=== PATIENT | female | born 1960 | race Caucasian/White ===

== ENCOUNTER → 2023-05-26 08:45 | Outpatient (REF) | payer OTHER, SELFPAY | LOC: WDC 08:45 | PROVIDERS: ATTENDING PHYSICIAN Internal Medicine | DX: Z12.31 Encounter for screening mammogram for malignant neoplasm of breast (principal) | CPT/HCPCS: 77063; 77067 ==

== ENCOUNTER 2023-06-24 14:54 | Emergency (ER) | payer OTHER, SELFPAY ==
--- NOTE | 2023-06-24 15:54 | ED.GENMED ---
History of Present Illness
<Lynn Abel PA-C - Last Filed: 06/24/23 23:10>
General
Chief Complaint: Eye Problems
Source: patient
Exam Limitations: none
Time Seen by Provider: 06/24/23 15:28
Nursing documentation reviewed up to this point in time: agreed with
Travel History
Have you had any contact with someone who has COVID-19?: No
Do you have any symptoms of coronavirus? Fever > 100 degrees, chills, cough, shortness of breath, sore throat, loss of taste or smell, muscle aches, or headache?: No
History of Present Illness
History of Present Illness:
Patient is a 62 year old female with no significant past medical history presenting for evaluation of right eye redness. Patient states that she has intermittently over the past month but experiencing sharp, stabbing pain behind her right eye and
right side of head. These episodes only last about 30 seconds each and occur about once per day. She has been using Systane eyedrops for dry eye. Patient states that earlier today she had an episode of the pain, applied eyedrops, shortly after
looked at her eye in the mirror and noticed significant redness in the right bottom right corner of eye. She denies any current eye pain, blurry vision, flashes, floaters, double vision. She denies any headache, neck pain, numbness/tingling.
Patient does not wear contact lenses. She does use glasses daily and follows with an roofing subcontractor.
Patient was seen at urgent care earlier today and was referred to the emergency department for possible CT scan of head.
Of note�patient was recently diagnosed with sinusitis. She is currently finishing up a course of Augmentin.
Past History
<Lynn Abel PA-C - Last Filed: 06/24/23 23:10>
Past History
ED Past Medical History: GERD (diet controlled) and Other (Costochondritis, chronic back pain with sciatica-on Percocet BID/Motrin)
ED Past Surgical History: None
Social History
Tobacco: Non-smoker
Alcohol: None
Drug: None
Personal:
Living: with family
Family History
Family History: CAD
Phy Exam
<Lynn Abel PA-C - Last Filed: 06/24/23 23:10>
Physical Exam
Physical Exam:
General: In no apparent distress, nontoxic appearing
HEENT: Atraumatic, normocephalic; conjunctival hemorrhage noted to the right inferior lateral aspect of eye limbic sparing, no evidence of hyphema or increased intraocular pressure, pupils equal round and reactive light bilaterally, extraocular
muscles intact,protecting airway
Neck: appears supple, no cervical spine or midline spinal tenderness
CV: Regular rate and rhythm, heart sounds normal, no evidence of cyanosis
Resp: No evidence of respiratory distress, lungs clear bilaterally
Abd: Soft, nontender, non-distended
Extremities: No deformities, no evidence of cyanosis or edema
Neuro: alert and oriented x 3 to person, place, time; speech normal; no focal neurologic deficits, sensation fully intact
Psych: Normal affect
Skin: Intact, no rashes
Course
<Lynn Abel PA-C - Last Filed: 06/24/23 23:10>
Orders/Labs/Results
Orders:
Orders
06/24/23 15:31
Fluorescein Sodium [Ful-Gladys] 2 mg .ROUTE .STK-MED ONE
Purified Water Eye Wash [Dacriose Eye Wash Solution] 120 ml .ROUTE .STK-MED ONE
Tetracaine HCl [Tetracaine 0.5% Ophthalmic Solution] 1 drop .ROUTE .STK-MED ONE
06/24/23 15:39
Tobramycin 0.3% [Tobrex 0.3% Eye Drops] 1 drop .ROUTE .STK-MED ONE
06/24/23 15:59
CT Head W/o Iv Contrast Urgent
Comment:
Reason For Exam: pain behind right eye
Sinuses wo Contrast CT [CT Sinuses W/o Iv Contrast] Urgent
Comment:
Reason For Exam: pain behind right eye; finishing abx for sinusitis
06/24/23 18:18
Prednisone [Deltasone] 50 mg PO NOW STA
Vital Signs
Initial and Last Documented VS:
Initial Vital Signs
Temp Pulse Resp BP Pulse Ox
98.2 F 88 18 150/84 98
06/24/23 14:58 06/24/23 14:58 06/24/23 14:58 06/24/23 14:58 06/24/23 14:58
Last Documented Vital Signs
Temp Pulse Resp BP Pulse Ox
98.2 F 88 18 150/84 98
06/24/23 14:58 06/24/23 14:58 06/24/23 14:58 06/24/23 14:58 06/24/23 14:58
<Rohan Cohn, DO - Last Filed: 06/24/23 16:09>
Orders/Labs/Results
Orders:
Orders
06/24/23 15:31
Fluorescein Sodium [Ful-Gladys] 2 mg .ROUTE .STK-MED ONE
Purified Water Eye Wash [Dacriose Eye Wash Solution] 120 ml .ROUTE .STK-MED ONE
Tetracaine HCl [Tetracaine 0.5% Ophthalmic Solution] 1 drop .ROUTE .STK-MED ONE
06/24/23 15:39
Tobramycin 0.3% [Tobrex 0.3% Eye Drops] 1 drop .ROUTE .STK-MED ONE
06/24/23 15:59
CT Head W/o Iv Contrast Urgent
Comment:
Reason For Exam: pain behind right eye
Sinuses wo Contrast CT [CT Sinuses W/o Iv Contrast] Urgent
Comment:
Reason For Exam: pain behind right eye; finishing abx for sinusitis
06/24/23 18:18
Prednisone [Deltasone] 50 mg PO NOW STA
Vital Signs
Initial and Last Documented VS:
Initial Vital Signs
Temp Pulse Resp BP Pulse Ox
98.2 F 88 18 150/84 98
06/24/23 14:58 06/24/23 14:58 06/24/23 14:58 06/24/23 14:58 06/24/23 14:58
Last Documented Vital Signs
Temp Pulse Resp BP Pulse Ox
98.2 F 88 18 150/84 98
06/24/23 14:58 06/24/23 14:58 06/24/23 14:58 06/24/23 14:58 06/24/23 14:58
<Lynn Abel PA-C - Last Filed: 06/24/23 23:10>
MDM/Problems Addressed
Differential Diagnosis Includes:
Subconjunctival hemorrhage, sinusitis, cluster headache, migraine, conjunctivitis, acute angle-closure glaucoma, intraparenchymal hemorrhage etc.
MDM/Problems Addressed:
62-year-old female presenting for evaluation of right eye redness. Patient does report intermittent stabbing pain behind right eye over the past month. Currently finishing up course of antibiotic for suspected sinusitis. Patient is currently
asymptomatic and denies any headache, blurry vision, flashes, floaters, pain. Seen in urgent care and referred to emergency department for possible CT scan. Mildly hypertensive, otherwise vital signs stable. Physical exam as document above. She
does have a subconjunctival hemorrhage of the right eye in the inferior lateral aspect without any evidence of hyphema or increase in intraocular pressure. Given known sinus infection and persistent, yet intermittent pain�will check CT head and
sinuses. I do suspect that the subconjunctival hemorrhage is unrelated to intermittent pain.
Visual acuity obtained and noted. Intraocular pressures obtained with 15 mmHg and right eye and 14 [address] and left eye[address] head/sinuses pending
No evidence of acute intracranial disease noted on CT of head. CT of sinuses do show complete occlusion of left maxillary sinus with a mass suspicious for polyp, possible infection and cyst within the right maxillary sinus. Suspect these findings
may be contributing to the pain behind patient's eye. Given patient is already being treated for sinus affection�will give dose of steroid in emergency department and discharged with Medrol Dosepak.
Patient has no emergent findings found today while in the emergency department. Intraocular pressure is normal. No acute intracranial abnormalities noted on imaging. Patient has remained completely asymptomatic since arrival to emergency
department today. Stable for discharge with ENT referral and ophthalmology referral. Return precautions discussed with patient at length.
Chronic conditions affecting care:
N/A
Acute Exacerbation and/or Progression of Chronic Illness:
N/A
<Lynn Abel PA-C - Last Filed: 06/24/23 23:10>
*Radiology
Radiology exam reviewed: preliminary read by ED provider and radiology read reviewed
*Pulse Oximetry
Patient hypoxic: no
*EKG
Interpreted by ED Provider?: NA
*Radiation Control Health Physicist Interpretation
Rate: Radiation Control Health Physicist- N/A
*Critical Care Note
Total Time (30-74mins, 75-104mins- exclusive of procedures): Not Applicable
Data Reviewed
Source: patient
ED Attending Note
<Lynn Abel PA-C - Last Filed: 06/24/23 23:10>
-
Portions of this chart may have been created with voice recognition software.� Occasional wrong word or��sound alike� substitutions may have occurred due to the inherent limitations of voice recognition software.
<Rohan Cohn DO - Last Filed: 06/24/23 16:09>
ED Attending Note
Patient seen and examined by attending physician: Yes
I performed the substantive portion of visit, reviewed & personally made and approve the management plan that is documented in note by myself or KAUSHAL.: Yes
ED Attending Note:
Seen with PA examined independently intermittent right eye pain diagnosed with sinusitis today put some drops and noticed looks like a subconjunctival hemorrhage seen urgent care referred here for imaging
Discharge Plan
Departure
Patient Disposition: Home (Routine Discharge)
Date of Disposition: 06/24/23
Time of Disposition: 18:18
Patient with high blood pressure during this ER visit?: No
Condition: Good
Covid-19: Not Applicable
Discharge Problem:
Subconjunctival hemorrhage of right eye, Sinusitis
Instructions: Subconjunctival Hemorrhage, Sinusitis, Adult ED
Prescriptions:
New
methylprednisolone [Medrol (Fernando)] 4 mg tablets,dose pack
See Rx Instructions .ROUTE .COMPLEX Qty: 21 0RF
Rx Instructions:
for 6 days
No Action
hydrocodone-acetaminophen 1 EACH tablet
1 ea PO .Q4-6HPRN PRN (Reason: pain)
methylprednisolone [Medrol (Fernando)] 4 MG tablets,dose pack
4 tab PO . DIRECT Qty: 1 0RF
ondansetron 4 MG tablet,disintegrating
4 mg PO TIDPRN PRN (Reason: nausea/vomiting) Qty: 8 0RF
dicyclomine 20 mg tablet
20 mg PO TID Qty: 20 0RF
Referrals:
Александр Yanez MD [Active] - Call in 1-3 days for appt
Zachary Alegre DO [Family Provider] -
Bettina Osei MD [Active] - As needed
Activity Restrictions/Additional Instructions:
-Return to the emergency department with nay high fevers, severe head, neck, or eye pain, visual changes, dizziness, numbness/tingling, worsening in current symptoms, or any other symptoms
-A prescription has been sent for steroid dose pack. You received your first dose of steroid in the emergency department today. You can start this tomorrow. You should complete your course of antibiotic for sinusitis as prescribed
-You can take Motrin, Tylenol as needed for discomfort
-As discussed�you should follow-up with ENT for further evaluation/management of sinusitis. A contact number has also been provided for ophthalmology, if needed
Interventions
Interventions:
*Risk Screen - Suicide Last Done: 06/24/23 15:34
*General Assessment Last Done: 06/24/23 15:11
*Neglect/Abuse Screening Last Done: 06/24/23 15:34
ED- Fall Risk Assessment Last Done: 06/24/23 15:34
*ED COVID-19 Vaccine History Last Done: 06/24/23 15:11
*Nursing Disposition Last Done: 06/24/23 18:29
Discharge Date and Time
Discharge Date/Time: 06/24/23 18:30
Print Language: CITIZEN OF [place]
[2023-06-24] MEDS: DELTASONE 50 MG PO (18:28)
== END 2023-06-24 18:30 | disposition home or self-care (01) ==
LOC: EMR 14:54
PROVIDERS: EMERGENCY PHYSICIAN Emergency Medicine; FAMILY PHYSICIAN Internal Medicine
DX: J01.90 Acute sinusitis, unspecified (principal); H11.31 Conjunctival hemorrhage, right eye; K21.9 Gastro-esophageal reflux disease without esophagitis; G89.29 Other chronic pain; M54.30 Sciatica, unspecified side; Z88.8 Allergy status to other drugs, medicaments and biological substances; Z91.018 Allergy to other foods
CPT/HCPCS: 99284; 70450; 70486

== ENCOUNTER 2023-09-26 08:30 | Emergency (ER) | payer OTHER, SELFPAY ==
[2023-09-26 09:36] LABS: % Basophils 0.6 % (0-2); % Eosinophils 0.1 % (0-6); % Immature Granulocytes 0.3 % (0-0.5); % Lymphocytes 16.1 % (20.5-51.1); % Monocytes 7.7 % (1.7-9.3); % Neutrophils 75.2 % (42.2-75.2); Absolute Basophils 0.1 10^3/uL (0-0.2); Absolute Lymphocytes 1.7 10^3/uL (1.2-3.4); Absolute Monocytes 0.8 10^3/uL (0.1-0.6); Absolute Neutrophils 8.1 10^3/uL (1.4-6.5); Hemoglobin 13.7 g/dL (12.0-16.0); Mean Corp Hgb Conc. 34.3 g/dL (33.0-37.0); Mean Corpuscular Hgb 29.7 pg (27.0-31.0); Mean Corpuscular Volume 86.8 fL (81.0-99.0); Mean Platelet Volume 9.3 fL (7.4-10.4); Nucleated Red Blood Cells % 0 %; Platelet Count 271 10^3/uL (130-400); Red Blood Cell Count 4.61 10^6/uL (4.20-5.40); Red Cell Dist. Width 12.5 % (11.5-14.5); White Blood Cell Count 10.8 10^3/uL (4.8-10.8)
[2023-09-26 09:47] LABS: ALT (SGPT) 16 U/L (0-35); AST (SGOT) 20 U/L (14-36); Albumin 4.6 g/dl (3.5-5.0); Alkaline Phosphatase 69 U/L (38-126); Blood Urea Nitrogen 14 mg/dl (7-17); Calcium 9.9 mg/dl (8.4-10.2); Carbon Dioxide 24 mmol/L (22-30); Chloride 106 mmol/L (98-107); Estimated Creatinine Clearance 93 ml/min; Glucose 97 mg/dl (70-99); Potassium 3.9 mmol/L (3.5-5.1); Sodium 140 mmol/L (135-145); Total Bilirubin 0.8 mg/dl (0.2-1.3); Total Protein 7.3 g/dl (6.3-8.2); eGFR > 60.00
--- NOTE | 2023-09-26 09:50 | ED.GENMED ---
History of Present Illness
General
Chief Complaint: Abdominal Pain
Time Seen by Provider: 09/26/23 08:58
History of Present Illness
History of Present Illness:
62-year-old female presents to the emergency department for evaluation of right upper quadrant pain ongoing for the past 6 days. She states this pain is comparable to her past biliary colic, was diagnosed with this approximately 6 to 7 months ago
and typically manages acute flareups with bowel rest and diet modifications. Her pain has been unrelenting since that time. Denies any fevers, chills, nausea, or vomiting. She is chronically on opioids for chronic back pain and states that
Percocet is not helping her at this point but admits she only takes half a tablet 3 times daily
Past History
Past History
ED Past Medical History: GERD (diet controlled) and Other (Costochondritis, chronic back pain with sciatica-on Percocet BID/Motrin)
ED Past Surgical History: None
Social History
Tobacco: Non-smoker
Alcohol: None
Drug: None
Personal:
Living: with family
Family History
Family History: CAD
Review of Systems
Review of Systems
Allergies reviewed?: Yes
All Other Systems: ROS reviewed and negative except as documented in HPI and ROS
Phy Exam
Physical Exam
Physical Exam:
GEN: Well appearing, NAD, WDWN
Eyes: PERRLA, EOMs intact, no scleral icterus
HENT: NCAT, oral mucosa moist
Lungs: CTAB, no wheezes, rales, rhonchi, normal chest wall excursion
Cardiac: RRR, no M/R/G, no peripheral edema. Radial pulses 2+ bilat
Abdomen: Soft, severe RUQ tenderness, no rigidty
Neuro: AO x 3
MSK: No gross deformity or ecchymosis. No edema. No digital clubbing
Skin: No rashes, petechiae. Normal color, no pallor or jaundice.
Psych: Calm, cooperative, proper hygiene
Course
Orders/Labs/Results
Orders:
Orders
09/26/23 09:07
US Abdomen Complete/Upper Urgent
Reason For Exam: RUQ pain, known cholelithiasis
09/26/23 09:18
Complete Blood Count/With Diff Urgent
Comprehensive Metabolic Panel Urgent
Lipase Urgent
09/26/23 10:47
HYDROmorphone [Dilaudid] 0.5 mg IV NOW STA
09/26/23 11:16
HYDROmorphone [Dilaudid] 1 mg IV NOW STA
Abnormal Lab Results
09/26/23
09:18
Absolute Neuts (auto) 8.1 H 10^3/uL
(1.4-6.5)
Absolute Monos (auto) 0.8 H 10^3/uL
(0.1-0.6)
Lymphocytes % 16.1 L %
(20.5-51.1)
09/26/23 09:18
09/26/23 09:18
Vital Signs
Initial and Last Documented VS:
Initial Vital Signs
Temp Pulse Resp BP Pulse Ox
98.0 F 85 16 163/97 97
09/26/23 08:34 09/26/23 08:34 09/26/23 08:34 09/26/23 08:34 09/26/23 08:34
Last Documented Vital Signs
Temp Pulse Resp BP Pulse Ox
97.9 F 73 15 134/90 91
09/26/23 09:15 09/26/23 11:00 09/26/23 11:00 09/26/23 09:14 09/26/23 11:00
MDM/Problems Addressed
MDM/Problems Addressed:
Workup reveals no e/o acute cholecystitis however persistent pain concerning; d/w surgery, they will see in office tomorrow to discuss surgical planning
*Critical Care Note
Total Time (30-74mins, 75-104mins- exclusive of procedures): Not Applicable
ED Attending Note
-
Portions of this chart may have been created with voice recognition software.� Occasional wrong word or��sound alike� substitutions may have occurred due to the inherent limitations of voice recognition software.
Discharge Plan
Departure
Patient Disposition: Home (Routine Discharge)
Date of Disposition: 09/26/23
Time of Disposition: 11:17
Patient with high blood pressure during this ER visit?: No
Discharge Problem:
Cholelithiasis
Instructions: Gallstones (DC)
Prescriptions:
No Action
hydrocodone-acetaminophen 1 EACH tablet
1 ea PO .Q4-6HPRN PRN (Reason: pain)
methylprednisolone [Medrol (Fernando)] 4 MG tablets,dose pack
4 tab PO . DIRECT Qty: 1 0RF
ondansetron 4 MG tablet,disintegrating
4 mg PO TIDPRN PRN (Reason: nausea/vomiting) Qty: 8 0RF
dicyclomine 20 mg tablet
20 mg PO TID Qty: 20 0RF
methylprednisolone [Medrol (Fernando)] 4 mg tablets,dose pack
See Rx Instructions .ROUTE .COMPLEX Qty: 21 0RF
Rx Instructions:
for 6 days
Referrals:
Aurelio Boyd MD [Active] - Tomorrow
Zachary Alegre DO [Family Provider] -
Activity Restrictions/Additional Instructions:
The surgeon's office will reach out to you
Take 1-1.5 of your percocets every 6 hours for pain control
If you develop a fever, return to the ER
Interventions
Interventions:
*Risk Screen - Suicide Last Done: 09/26/23 08:34
*General Assessment Last Done: 09/26/23 08:34
*Neglect/Abuse Screening Last Done: 09/26/23 08:34
ED- Fall Risk Assessment Last Done: 09/26/23 11:32
*ED COVID-19 Vaccine History Last Done: 09/26/23 09:10
*Nursing Disposition Last Done: 09/26/23 11:32
OE-Ceeopg-Jixllzgyav Assessment Last Done: 09/26/23 09:10
Discharge Date and Time
Discharge Date/Time: 09/26/23 11:33
Print Language: KHMER
[2023-09-26 10:39] LABS: Lipase 83 U/L (23-300)
[2023-09-26] MEDS: DILAUDID 0.5 MG IV (10:50)
[2023-09-26] MEDS: DILAUDID 1 MG IV (11:23)
== END 2023-09-26 11:33 | disposition home or self-care (01) ==
LOC: EMR 08:30
PROVIDERS: Physician Assistant; EMERGENCY PHYSICIAN Emergency Medicine; FAMILY PHYSICIAN Internal Medicine
DX: K80.20 Calculus of gallbladder without cholecystitis without obstruction (principal)
CPT/HCPCS: 99284; 96374; 96376; 76700; 80053; 83690; 85025

== ENCOUNTER 2023-10-12 14:50 | Day surgery (SDC) | payer OTHER, SELFPAY ==
[2023-10-12] VITALS (20 sets, daily range): BP systolic 124–170; BP diastolic 70–109; BMI 33.2
--- NOTE | 2023-10-12 06:47 | ED.GENMED ---
History of Present Illness
General
Chief Complaint: Abdominal Pain
Time Seen by Provider: 10/12/23 06:47
History of Present Illness
History of Present Illness:
HPI: The patient has had several ED visits over the past year. Since her last visit on 09/23/2023, she has had ongoing right upper quadrant pain but the pain dramatically worsened after she had applesauce and raw carrots last evening. She still has
significant pain and this is the first time that she ended up feeling dizzy with this. She vomited as well. She tried taking 'a pill' for nausea but this has not helped.
EXAM:
GENERAL: Well appearing in no distress
HEENT: Moist oral mucosa
CARDIOVASCULAR: No murmurs, normal heart rate, regular rhythm, No chest wall tenderness
PULMONARY: No respiratory distress, breath sounds are clear and equal
ABDOMEN: Soft with no peritoneal signs, focal mild to moderate right upper quadrant tenderness
NEUROLOGIC: Excellent strength all extremities, no coordination deficits
PSYCHIATRIC: Appropriate mental status, normal insight and judgement
EXTREMITIES: Nontender, no edema, moves all extremities equally
SKIN: No rash, no lesions
TIME OF INITIAL ENCOUNTER: 6:50 AM
NUMBER AND COMPLEXITY OF PROBLEMS ADDRESSED AT THE ENCOUNTER
� Chronic conditions affecting care: Gallstones
� Acute Exacerbation and/or Progression of Chronic Illness: This is an acute but recurring problem
� Differential Diagnosis includes: Biliary colic, cholecystitis, gallstone pancreatitis, GERD
AMOUNT AND/OR COMPLEXITY OF DATA TO BE REVIEWED AND ANALYZED
� I performed an independent evaluation of and my interpretation is:
EKG:
CT:
X-rays:
Laboratory Studies: CBC, CMP, and lipase normal
Other: Ultrasound imaging again shows gallstones but does not show any signs of cholecystitis
� Review of other/old records: I reviewed records. The patient was diagnosed with gallstones on a visit here 2 weeks ago and was also seen here with biliary colic in February and September of 2022
� Clinical information was obtained by an independent historian: None needed
� Prescriptions/Medications Considered but not given:
� Further testing considered but not performed:
RISK OF COMPLICATIONS AND/OR MORBIDITY OR MORTALITY OF PATIENT MANAGEMENT
� Social determinants of health affecting care: Lives at home
� Discussion with other providers: Notified/discussed with Dr. Rodriguez at 9:05 AM�will evaluate patient in the ED. Discussed case with Dr. Rodriguez at 12:15 PM and he plans on taking her to the OR later today.
� Escalation of care including admission/observation vs risk of discharge considered: The patient reported rather significant pain upon arrival. She was given a dose of Dilaudid. Labs and ultrasound imaging unremarkable with
exception of known gallstones. There is no sign of cholecystitis. The patient was given 2 rounds of Dilaudid. On reassessment 11:30 AM, still waiting for Dr. Rodriguez's evaluation. The patient request, 'something for my stomach'�will give Pepcid.
Past History
Past History
ED Past Medical History: GERD (diet controlled) and Other (Costochondritis, chronic back pain with sciatica-on Percocet BID/Motrin)
ED Past Surgical History: None
Social History
Tobacco: Non-smoker
Alcohol: None
Drug: None
Personal:
Living: with family
Family History
Family History: CAD
Phy Exam
Physical Exam
Physical Exam:
See HPI
Course
Orders/Labs/Results
Orders:
Orders
10/12/23 06:47
Complete Blood Count/With Diff Urgent
Comprehensive Metabolic Panel Urgent
Lipase Urgent
10/12/23 06:58
0.9% Sodium Chloride 1000 ml [Nss] 1,000 ml IV BOLUS
HYDROmorphone [Dilaudid] 1 mg IV NOW STA
Ondansetron Injectable [Zofran] 4 mg IV NOW STA
10/12/23 07:01
US Abdomen Complete/Upper Urgent
Comment:
Reason For Exam: RUQ pain
10/12/23 09:55
HYDROmorphone [Dilaudid] 1 mg IV NOW STA
10/12/23 11:29
Famotidine [Pepcid] 20 mg IV NOW STA
Abnormal Lab Results
10/12/23
06:47
Absolute Monos (auto) 0.9 H 10^3/uL
(0.1-0.6)
Glucose 103 H mg/dl
(70-99)
10/12/23 06:47
10/12/23 06:47
Vital Signs
Initial and Last Documented VS:
Initial Vital Signs
Temp Pulse Resp BP Pulse Ox
98.1 F 84 18 143/79 99
10/12/23 06:15 10/12/23 06:15 10/12/23 06:15 10/12/23 06:15 10/12/23 06:15
Last Documented Vital Signs
Temp Pulse Resp BP Pulse Ox
98.1 F 73 18 144/79 96
10/12/23 06:15 10/12/23 11:35 10/12/23 11:35 10/12/23 11:35 10/12/23 11:35
*Critical Care Note
Total Time (30-74mins, 75-104mins- exclusive of procedures): Not Applicable
ED Attending Note
-
Portions of this chart may have been created with voice recognition software.� Occasional wrong word or��sound alike� substitutions may have occurred due to the inherent limitations of voice recognition software.
Discharge Plan
Departure
Patient Disposition: OR
Date of Disposition: 10/12/23
Time of Disposition: 12:14
Presentation/result/management discussed w/ accepting MD/DO: dr rodriguez
Discharge Problem:
Biliary colic
Prescriptions:
No Action
hydrocodone-acetaminophen 1 EACH tablet
1 ea PO .Q4-6HPRN PRN (Reason: pain)
methylprednisolone [Medrol (Fernando)] 4 MG tablets,dose pack
4 tab PO . DIRECT Qty: 1 0RF
ondansetron 4 MG tablet,disintegrating
4 mg PO TIDPRN PRN (Reason: nausea/vomiting) Qty: 8 0RF
dicyclomine 20 mg tablet
20 mg PO TID Qty: 20 0RF
methylprednisolone [Medrol (Fernando)] 4 mg tablets,dose pack
See Rx Instructions .ROUTE .COMPLEX Qty: 21 0RF
Rx Instructions:
for 6 days
Referrals:
Zachary Alegre DO [Family Provider] -
Interventions
Interventions:
*Risk Screen - Suicide Last Done: 10/12/23 06:15
*General Assessment Last Done: 10/12/23 06:15
*Neglect/Abuse Screening Last Done: 10/12/23 06:15
ED- Fall Risk Assessment Last Done: 10/12/23 06:43
SW-Wolxzy-Qttakmmbna Assessment Last Done: 10/12/23 06:43
Discharge Date and Time
Print Language: IRISH
[2023-10-12 06:59] LABS: % Basophils 0.7 % (0-2); % Eosinophils 1.3 % (0-6); % Immature Granulocytes 0.3 % (0-0.5); % Monocytes 8.8 % (1.7-9.3); % Neutrophils 58.9 % (42.2-75.2); Absolute Basophils 0.1 10^3/uL (0-0.2); Absolute Eosinophils 0.1 10^3/uL (0-0.7); Absolute Monocytes 0.9 10^3/uL (0.1-0.6); Hematocrit 38.6 % (37.0-47.0); Hemoglobin 13.2 g/dL (12.0-16.0); Mean Corp Hgb Conc. 34.2 g/dL (33.0-37.0); Mean Corpuscular Hgb 29.5 pg (27.0-31.0); Mean Corpuscular Volume 86.4 fL (81.0-99.0); Mean Platelet Volume 9.9 fL (7.4-10.4); Nucleated Red Blood Cells % 0 %; Platelet Count 219 10^3/uL (130-400); Red Blood Cell Count 4.47 10^6/uL (4.20-5.40); Red Cell Dist. Width 12.4 % (11.5-14.5); White Blood Cell Count 10.1 10^3/uL (4.8-10.8)
[2023-10-12] MEDS: NSS 1000 IV ×2 (07:06→17:19)
[2023-10-12] MEDS: ZOFRAN 4 MG IV ×2 (07:06→15:16)
[2023-10-12] MEDS: DILAUDID 1 MG IV ×4 (07:07→19:46)
[2023-10-12 07:08] LABS: ALT (SGPT) 21 U/L (0-35); AST (SGOT) 22 U/L (14-36); Albumin 4.4 g/dl (3.5-5.0); Alkaline Phosphatase 67 U/L (38-126); Blood Urea Nitrogen 10 mg/dl (7-17); Calcium 9.9 mg/dl (8.4-10.2); Carbon Dioxide 27 mmol/L (22-30); Chloride 106 mmol/L (98-107); Estimated Creatinine Clearance 109 ml/min; Glucose 103 mg/dl (70-99); Lipase 74 U/L (23-300); Potassium 3.6 mmol/L (3.5-5.1); Sodium 139 mmol/L (135-145); Total Bilirubin 0.6 mg/dl (0.2-1.3); eGFR > 60.00
[2023-10-12] MEDS: PEPCID 20 MG IV (11:31)
--- NOTE | 2023-10-12 13:12 | HP.FOC2 ---
Focused History & Physical
Chief Complaint
HPI:
Chief Complaint: Right upper quadrant pain
HPI / Indication for Planned Procedure: 62-year-old female with known history of symptomatic cholelithiasis. She has been scheduled for cholecystectomy in October with Dr. Boyd. Presented to the emergency department secondary to recurrent bout of
acute biliary colic more severe in nature than previously. Gallstones confirmed again on ultrasound. No leukocytosis, comprehensive metabolic panel normal as well as lipase. She has persistent tenderness and discomfort as well as nausea prompting
consideration for cholecystectomy at this evaluation.
Relevant Past Medical History: Other (Chronic back pain, GERD, seasonal allergies, anxiety)
Relevant Social History: Negative
Relevant Family History: Negative
Relevant Past Surgical History: Positive for (, left shoulder surgery)
Medication
See Medication form for detailed medications: Yes
Medication List (including Herbals & OTC):
apple cider vinegar 500 mg tablet 500 mg PO DAILY 10/12/23
ibuprofen 400 mg tablet 400 mg PO Q6HPRN PRN mild pain 10/12/23
oxycodone-acetaminophen 7.5 mg-325 mg tablet (Percocet) 1 tab PO Q6HPRN PRN severe pain 10/12/23
polyethylene glycol 3350 17 gram oral powder packet (Miralax) 17 g PO DAILY 10/12/23
Medications Reviewed: Yes
Allergies and Reactions
Patient has Allergies: Yes
Noted Allergies and Reactions:
Allergy/AdvReac Type Severity Reaction Status Date / Time
caffeine Allergy tachycardia Verified 09/26/23 08:34
epinephrine AdvReac tachycardia Verified 09/26/23 08:34
Pertinent Physical Exam
All Other Systems: Negative
Head/Neck: Normal
Lungs: Normal
Heart: Normal
Abdomen: Other (Tenderness palpation right upper quadrant, no rebound rigidity or guarding)
Diagnosis / Assessment
Assessment: 62-year-old female presenting to the emergency department evaluation today with acute biliary colic versus acute calculus cholecystitis. No gallstones. In the setting of her multiple recurrent episodes prompting emergency department
evaluation and now intractable pain we discussed indications for cholecystectomy at today's evaluation which is her strong preference.
Laparoscopic cholecystectomy was reviewed in detail including the operative technique utilizing a diagram and drawing. We discussed alternative treatment options, benefits and risks of surgery such as but not limited to bleeding, infectious or
wound related complications, iatrogenic injury to surrounding viscera, bile leak, common bile duct injury, postcholecystectomy syndrome/fatty food intolerances. Any of the patient's concerns or questions were fully addressed and written informed
consent was obtained.
Plan / Procedure
Laparoscopic cholecystectomy
Anesthesia/Sedation to be done by Anesthesia Provider: Yes
--- NOTE | 2023-10-12 13:16 | W.SUR.PREOP ---
Pre-Operative Surgical Note
-
I have examined this patient prior to the performance of the scheduled procedure.
The patient's condition is unchanged from the time of the current History and
Physical and the patient is able to undergo the scheduled procedure.
--- NOTE | 2023-10-12 14:49 | W.IMMPOSTOP ---
Addendum entered and electronically signed by Zachary Omalley MD 10/12/23 16:50:
#[id number]
Original Note:
Surgical Immed Post Op Note
-
Primary Surgeon: Lyssa
Assisting Surgeon: Arelis Sheikh PA-c
Pre-op Diagnosis: Acute biliary colic
Post-op Diagnosis: Acute calculus cholecystitis
Procedure Performed: Laparoscopic cholecystectomy
Anesthesia Type: GETA +0.25% Marcaine with
Specimen / Cultures: Gallbladder
Estimated Blood Loss: 8 mL
Complications: None immediate
Operative Findings: Tensely distended gallbladder with wall edema. Cholecystectomy completed intact. Cystic duct controlled with 3 proximal clips.
The assistance of Arelis Sheikh PA-c was required due to the complexity of the procedure. During the procedure Arelis Yeung's assisted with GB retraction, managing the laparoscope, and closure of the incision sites.
[2023-10-12] MEDS: DILAUDID 0.25 MG IV ×2 (15:22→15:32)
[2023-10-12] MEDS: DILAUDID 0.5 MG IV (16:00)
--- NOTE | 2023-10-12 17:22 | PTCARENOTE ---
Pt arrived from PACU saturated in urine c/o need to urinate. Pt ambulated to BR with a standby assist, gait steady. Pt c/o pain 11/26, PRN dilaudid provided. IVF infusing per order. Abdominal lap sites C/D/I, glued and SUPERINTENDENT MARINE. Bed locked and in the
lowest position, safety maintained. Oriented to room and call chamberlain, family at bedside.
[2023-10-12] MEDS: HEPARIN 5000 UNITS SC (19:46)
[2023-10-12] MEDS: PEPCID 40 MG PO (23:15)
[2023-10-12] MEDS: TORADOL 10 MG IV (23:15)
[2023-10-13] MEDS: NSS 1000 IV (02:56)
[2023-10-13] MEDS: ROXICODONE 10 MG PO (03:03)
[2023-10-13 03:40] VITALS: BP 157/80
[2023-10-13] MEDS: DILAUDID 1 MG IV (06:25)
[2023-10-13 07:25] VITALS: BP 154/92
--- NOTE | 2023-10-13 08:01 | W.PN.GS2 ---
Today's Communication / Plan
-
-- DC today
Assessment / Plan
-
Patient is a 62 yo F POD#1 s/p laparoscopic cholecystectomy
Recovering well. No postoperative concerns.
-- LFD
-- Pain control: Tylenol, Toradol, Oxycodone
-- HLIV
-- No need for further abx
-- DVT: Lovenox
-- GI: Pepcid
-- DC today
Subjective Data
-
Date of Service: October 13, 2023
No complaints. Pain overall well-controlled. Reports a slight pulling sensation with bending or twisting. No nausea or vomiting, minimal PO intake. Voiding. Ambulating.
Objective Data
-
Intake and Output
10/12/23 10/13/23 10/14/23
06:59 06:59 06:59
Intake Total 1320 / 1320
Output Total 325 / 325
Balance 995 / 995
Intake:
IV fluids (Total) 1320 / 1320
Output:
Urine, Voided 325 / 325
Other:
Number of approximated LARGE 1
amounts of urine
Vital Signs
Temp Pulse Resp BP Pulse Ox
98.3 F 86 18 154/92 95
10/13/23 07:25 10/13/23 07:25 10/13/23 07:25 10/13/23 07:25 10/13/23 07:25
Lab Results
10/12/23 06:47
10/12/23 06:47
Calcium 9.9 mg/dl (8.4-10.2) 10/12/23 06:47
Total Bilirubin 0.6 mg/dl (0.2-1.3) 10/12/23 06:47
AST 22 U/L (14-36) 10/12/23 06:47
ALT 21 U/L (0-35) 10/12/23 06:47
Alkaline Phosphatase 67 U/L (38-126) 10/12/23 06:47
Total Protein 7.0 g/dl (6.3-8.2) 10/12/23 06:47
Albumin 4.4 g/dl (3.5-5.0) 10/12/23 06:47
Physical Exam
-
Gen: NAD
Abd: soft, appropriately tender, ND, non-peritoneal, incisions c/d/i - no erythema, ecchymosis or drainage
[2023-10-13] MEDS: ROXICODONE 5 MG PO (08:24)
[2023-10-13] MEDS: HEPARIN SC (08:27)
--- NOTE | 2023-10-13 09:55 | CM ---
Patient who is s/p s/p laparoscopic cholecystectomy.
Met with patient who resides with her in a one story house with basement for laundry.
The patient has been independent in ADLs and ambulation.
She is active, works from home.
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 She is considering hiring a caregiver for her , however he was able to be independent while she was here at the hospital.
She has no DME or prior VN.
PCP - Zachary Alegre
Pharmacy - [facility].
The patient states she feels ready for d/c today. Her sister will provide transport home.
No CM d/c needs identified.
Plan home today.
== END 2023-10-13 10:40 | disposition home or self-care (01) ==
LOC: PACU 14:50
PROVIDERS: Emergency Medicine; ATTENDING PHYSICIAN Surgery; EMERGENCY PHYSICIAN Emergency Medicine; FAMILY PHYSICIAN Internal Medicine
DX: K80.10 Calculus of gallbladder with chronic cholecystitis without obstruction (principal)
CPT/HCPCS: 47562; 88304; 76700; 80053; 83690; 85025; 96361; 96374; 96375; 96376; 99285

== ENCOUNTER 2023-11-18 15:32 | Emergency (ER) | payer OTHER, SELFPAY ==
--- NOTE | 2023-11-18 16:05 | ED.GENMED ---
History of Present Illness
General
Chief Complaint: Abdominal Pain
Time Seen by Provider: 11/18/23 15:41
History of Present Illness
History of Present Illness:
62-year-old female presents to the emergency department for evaluation of intractable right upper quadrant pain worsening for the past 5 weeks, states that the pain began shortly after undergoing laparoscopic cholecystectomy on October 11. She reports
pain worsens after eating associated with abdominal bloating and constipation. Denies diarrhea. No fevers or chills. Also reports lower urinary tract voiding symptoms including dysuria and urinary urgency, took Azo prior to arrival here today.
Past History
Past History
ED Past Medical History: GERD (diet controlled) and Other (Costochondritis, chronic back pain with sciatica-on Percocet BID/Motrin)
ED Past Surgical History: None
Social History
Tobacco: Non-smoker
Alcohol: None
Drug: None
Personal:
Living: with family
Family History
Family History: CAD
Review of Systems
Review of Systems
Allergies reviewed?: Yes
All Other Systems: ROS reviewed and negative except as documented in HPI and ROS
Phy Exam
Physical Exam
Physical Exam:
GEN: Well appearing, NAD, WDWN
HEENT: Oral mucosa moist, no scleral icterus
Cardiac: Regular rate
Lung: No respiratory distress, no tachypnea
Abdomen: Soft, focal right upper quadrant tenderness with no rigidity, no peritoneal signs
MSK: No gross deformity or injuries
Skin: Good color, no pallor or jaundice, no rashes
Neuro: AO x3, moves all extremities freely
Psych: Calm, cooperative
Course
Orders/Labs/Results
Orders:
Orders
11/18/23 16:04
CT Abd/Pel (IV only)-DH only Urgent
Comment:
Reason For Exam: RUQ pain 5 wk s/p cholecystectomy
11/18/23 16:41
Complete Blood Count/With Diff Urgent
Comprehensive Metabolic Panel Urgent
Lipase Urgent
Urinalysis Urgent
Date Specimen was Collected: 11/18/23
Time Specimen was Collected: 16:31
Urine Microscopic Urgent
Date Specimen was Collected: 11/18/23
Time Specimen was Collected: 16:
Urine Culture Urgent
EDISON Source: Urine
Specimen Description:
Obtained by: [facility]
Date Specimen was Collected: 11/18/23
Time Specimen was Collected: 16:
11/18/23 18:37
CefTRIAXone [Rocephin] 1,000 mg IV NOW STA
Abnormal Lab Results
11/18/23
16:41
RBC 4.08 L 10^6/uL
(4.20-5.40)
Hct 35.5 L %
(37.0-47.0)
Absolute Monos (auto) 0.8 H 10^3/uL
(0.1-0.6)
Lymphocytes % 17.3 L %
(20.5-51.1)
Monocytes % 10.0 H %
(1.7-9.3)
Urine Nitrite Positive A
(Negative)
Urine Bilirubin 3+ A
(Negative)
Urine Urobilinogen 2+ A
(Neg - 1+)
Urine Bacteria Few A
(Negative)
Urine Albumin 1+ A
(Neg - Trace)
11/18/23 16:41
11/18/23 16:41
Vital Signs
Initial and Last Documented VS:
Initial Vital Signs
Temp Pulse Resp BP Pulse Ox
98.4 F 87 16 134/88 96
11/18/23 15:35 11/18/23 15:35 11/18/23 15:35 11/18/23 15:35 11/18/23 15:35
Last Documented Vital Signs
Temp Pulse Resp BP Pulse Ox
98.4 F 87 16 138/72 96
11/18/23 15:35 11/18/23 15:35 11/18/23 15:35 11/18/23 18:00 11/18/23 15:35
MDM/Problems Addressed
MDM/Problems Addressed:
CT shows no evidence of postsurgical complications and labs are reassuring. Although her urinalysis does not look convincing for UTI she certainly does have urinary voiding symptoms and we will treat this with oral antibiotics. Encouraged her to
continue with plan to obtain MRI of the abdomen on Sunday and follow-up with surgery if pain persists. She declined pain medication prescription
*Critical Care Note
Total Time (30-74mins, 75-104mins- exclusive of procedures): Not Applicable
ED Attending Note
-
Portions of this chart may have been created with voice recognition software.� Occasional wrong word or��sound alike� substitutions may have occurred due to the inherent limitations of voice recognition software.
Discharge Plan
Departure
Patient Disposition: Home (Routine Discharge)
Date of Disposition: 11/18/23
Time of Disposition: 18:37
Patient with high blood pressure during this ER visit?: No
Discharge Problem:
Urinary tract infection
Instructions: Urinary Tract Infection, Adult ED
Prescriptions:
New
cefdinir 300 mg capsule
300 mg PO Q12H Qty: 14 0RF
No Action
polyethylene glycol 3350 [Miralax] 17 gram Powder In Packet
17 g PO DAILY
ibuprofen 400 mg Tablet
400 mg PO Q6HPRN PRN (Reason: mild pain)
oxycodone-acetaminophen [Percocet] 7.5-325 mg Tablet
1 tab PO Q6HPRN PRN (Reason: severe pain)
apple cider vinegar 500 mg Tablet
500 mg PO DAILY
oxycodone 5 mg tablet
5 mg PO Q4HPRN PRN (Reason: breakthrough/severe pain) Qty: 10 0RF
Referrals:
Zachary Alegre DO [Family Provider] -
Activity Restrictions/Additional Instructions:
Continue with plan to obtain MRI this week
Interventions
Interventions:
*Risk Screen - Suicide Last Done: 11/18/23 15:35
*General Assessment Last Done: 11/18/23 15:35
*Neglect/Abuse Screening Last Done: 11/18/23 15:35
ED- Fall Risk Assessment Last Done: 11/18/23 19:17
*Nursing Disposition Last Done: 11/18/23 19:17
IF-Tviaej-Djlbxxxrqs Assessment Last Done: 11/18/23 17:42
Discharge Date and Time
Discharge Date/Time: 11/18/23 19:16
Print Language: FAROESE
[2023-11-18 17:26] LABS: % Basophils 0.6 % (0-2); % Eosinophils 0.6 % (0-6); % Immature Granulocytes 0.1 % (0-0.5); % Lymphocytes 17.3 % (20.5-51.1); % Neutrophils 71.4 % (42.2-75.2); Absolute Basophils 0.1 10^3/uL (0-0.2); Absolute Eosinophils 0.1 10^3/uL (0-0.7); Absolute Lymphocytes 1.4 10^3/uL (1.2-3.4); Absolute Monocytes 0.8 10^3/uL (0.1-0.6); Absolute Neutrophils 5.8 10^3/uL (1.4-6.5); Hematocrit 35.5 % (37.0-47.0); Hemoglobin 12.3 g/dL (12.0-16.0); Mean Corp Hgb Conc. 34.6 g/dL (33.0-37.0); Mean Corpuscular Hgb 30.1 pg (27.0-31.0); Mean Platelet Volume 9.6 fL (7.4-10.4); Nucleated Red Blood Cells % 0 %; Platelet Count 201 10^3/uL (130-400); Red Blood Cell Count 4.08 10^6/uL (4.20-5.40); Red Cell Dist. Width 12.4 % (11.5-14.5); White Blood Cell Count 8.1 10^3/uL (4.8-10.8)
[2023-11-18 17:41] LABS: Urine Albumin 1+ (Neg - Trace); Urine Bilirubin 3+ (Negative); Urine Character Clear (Clear); Urine Color Red; Urine Glucose Negative (Negative); Urine Ketone Negative (Negative); Urine Leukocyte Negative (Negative); Urine Nitrite Positive (Negative); Urine Occult Blood Negative (Negative); Urine Specific Gravity 1.025 (<1.030); Urine Urobilinogen 2+ (Neg - 1+)
[2023-11-18 17:44] LABS: ALT (SGPT) 19 U/L (0-35); AST (SGOT) 30 U/L (14-36); Albumin 4.3 g/dl (3.5-5.0); Alkaline Phosphatase 98 U/L (38-126); Blood Urea Nitrogen 13 mg/dl (7-17); Calcium 10.1 mg/dl (8.4-10.2); Carbon Dioxide 26 mmol/L (22-30); Chloride 102 mmol/L (98-107); Glucose 95 mg/dl (70-99); Lipase 108 U/L (23-300); Potassium 4.2 mmol/L (3.5-5.1); Sodium 138 mmol/L (135-145); Total Bilirubin 0.6 mg/dl (0.2-1.3); Total Protein 6.9 g/dl (6.3-8.2); eGFR > 60.00
[2023-11-18 17:50] LABS: Urine Squamous Cell 0-2 /LPF (Few)
[2023-11-18 17:51] LABS: Urine Bacteria Few (Negative); Urine Calcium Oxalate Crystals Present; Urine Red Blood Cell 0-2 /HPF (0-2)
[2023-11-18] MEDS: ROCEPHIN 1000 MG IV (19:04)
== END 2023-11-18 19:16 | disposition home or self-care (01) ==
LOC: EMR 15:32
PROVIDERS: Physician Assistant; EMERGENCY PHYSICIAN Emergency Medicine; FAMILY PHYSICIAN Internal Medicine
DX: N39.0 Urinary tract infection, site not specified (principal); K21.9 Gastro-esophageal reflux disease without esophagitis; Z82.49 Family history of ischemic heart disease and other diseases of the circulatory system; Z90.49 Acquired absence of other specified parts of digestive tract
CPT/HCPCS: 99284; 96374; 74177; 80053; 81003; 81015; 83690; 85025; 87086; Q9967

== ENCOUNTER → 2023-11-20 08:07 | Outpatient (REF) | payer OTHER, SELFPAY | LOC: MRI 08:07 | PROVIDERS: ATTENDING PHYSICIAN Surgery; FAMILY PHYSICIAN Internal Medicine | DX: M54.9 Dorsalgia, unspecified (principal); Z90.49 Acquired absence of other specified parts of digestive tract | CPT/HCPCS: 74181 ==

== ENCOUNTER 2024-04-25 06:24 | Day surgery (SDC) | payer OTHER, SELFPAY | END 2024-04-25 14:56 | disposition home or self-care (01) | LOC: GI 06:24 | PROVIDERS: ATTENDING PHYSICIAN Specialist | DX: Z12.11 Encounter for screening for malignant neoplasm of colon (principal); K57.30 Diverticulosis of large intestine without perforation or abscess without bleeding; K63.5 Polyp of colon | CPT/HCPCS: 45380; 88305 ==